=== PATIENT | male | born 1945 | race Caucasian/White ===

== ENCOUNTER 2016-10-07 18:14 | Inpatient (IN) | payer OTHER ==
[~2016-10-07] VITALS: Ht 175.3 cm; Wt 61.9 kg
[~2016-10-07 18:14] MED LIST: AMLODIPINE BESY10 MG PO; ASPIRIN EC325 MG PO; ATORVASTATIN CA80 MG PO; BACTRIM,SEPT1 TABLET PO; CATAPRES0.3 MG PO; EFFIENT10 MG PO; FLAGYL500 MG PO; FUROSEMIDE20 MG PO; LOPRESSOR100 M1 PO; NICOTINE PATCH1 EAC2 TD; SIMVASTATIN10 MG PO; ULTRAM50 MG PO; ZESTRIL40 MG PO; ZYLOPRIM100 MG PO
[2016-10-07 19:22] LABS: HEMATOCRIT 25.8 % (38.0-50.0); MCH 31.6 PG (29.0-34.0); PLATELET COUNT 429 K/uL (156-360); RBC DIS.WIDTH-CV 16.8 % (11.8-14.6); RBC DIS.WIDTH-SD 60.4 % (39-53); RED BLOOD COUNT 2.53 M/uL (4.00-5.50); WHITE BLOOD COUNT 8.4 K/uL (4.1-10.2)
[2016-10-07 19:31] LABS: CHLORIDE 101 mEq/L (99-109); POTASSIUM 4.5 mEq/L (3.7-5.4); SODIUM 131 mEq/L (136-147)
[2016-10-07 19:33] LABS: GLUCOSE 97 mg/dL (70-99)
[2016-10-07 19:34] LABS: ANION GAP 9 MEQ/L (2-14)
[2016-10-07 19:37] LABS: GFR ESTIMATE (CALCULATED) 58 mL/min/; UREA NITROGEN (BUN) 16 mg/dL (9-23)
[2016-10-07 20:28] LABS: ADD MIUA? NO; BILIRUBIN NEGATIVE; BLOOD NEGATIVE; COLOR YELLOW ((YELLOW)); GLUCOSE (STRIP) NEGATIVE; KETONES NEGATIVE; LEUKOCYTES NEGATIVE; NITRITE NEGATIVE; PROTEIN (STRIP) NEGATIVE; SPECIFIC GRAVITY 1.016 (1.000-1.030); UCUL ADDED? NO; UROBILINOGEN 0.2 MG/DL (0.2-1.0)
[2016-10-07 21:25] LABS: INTER. NORMALIZED RATIO 1.1; PROTHROMBIN TIME 10.7 (9.2-11.2); PTT 33.1 (25-32)
[2016-10-08 00:03] VITALS: BP 147/67
[2016-10-08 07:40] VITALS: BP 160/70
[2016-10-08 11:02] LABS: HEMATOCRIT 24.8 % (38.0-50.0); MCH 31.9 PG (29.0-34.0); MCHC 30.6 G/DL (30.0-36.0); MCV 104.2 FL (86-99); MEAN PLAT.VOLUME 10.3 uM^3 (9.0-12.4); PLATELET COUNT 409 K/uL (156-360); RBC DIS.WIDTH-CV 16.5 % (11.8-14.6); RBC DIS.WIDTH-SD 60.8 % (39-53); RED BLOOD COUNT 2.38 M/uL (4.00-5.50); WHITE BLOOD COUNT 8.2 K/uL (4.1-10.2)
[2016-10-08 11:15] VITALS: BP 140/80
[2016-10-08 11:29] LABS: ALKALINE PHOSPHATASE 180 IU/L (3-129); ANION GAP 8 MEQ/L (2-14); CHLORIDE 103 MEQ/L (99-109); GFR ESTIMATE (CALCULATED) > 59 mL/min/; GLUCOSE 101 mg/dL (70-99); MAGNESIUM 1.5 mg/dl (1.3-2.7); SAMPLE HEMOLYSIS CHECK 0; SAMPLE ICTERIC CHECK 0; SAMPLE LIPEMIA CHECK 0; SODIUM 132 MEQ/L (136-147); TOTAL BILIRUBIN 0.5 MG/DL (0.0-1.0); UREA NITROGEN (BUN) 13 mg/dL (9-23)
[2016-10-08 15:23] VITALS: BP 130/80
[2016-10-08 19:18] VITALS: BP 108/74
[2016-10-08 22:47] LABS: POINT-OF-CARE METER ID UU14188625
[2016-10-08 23:52] VITALS: BP 154/76
[2016-10-09 01:22] LABS: HEMATOCRIT 22.6 % (38.0-50.0); MCHC 31.4 G/DL (30.0-36.0); MCV 101.8 FL (86-99); MEAN PLAT.VOLUME 10.1 uM^3 (9.0-12.4); PLATELET COUNT 371 K/uL (156-360); RBC DIS.WIDTH-CV 16.2 % (11.8-14.6); RBC DIS.WIDTH-SD 59.5 % (39-53); RED BLOOD COUNT 2.22 M/uL (4.00-5.50)
[2016-10-09 04:10] VITALS: BP 133/71
[2016-10-09 07:58] VITALS: BP 150/71
[2016-10-09 11:39] LABS: IRON 27 MCG/DL (35-150)
[2016-10-09 11:46] LABS: FERRITIN 685 NG/ML (22-322)
[2016-10-09 15:59] VITALS: BP 154/69
[2016-10-09 20:00] VITALS: BP 163/60
[2016-10-09 23:22] VITALS: BP 160/76
[2016-10-10 03:28] VITALS: BP 152/78
[2016-10-10 07:26] VITALS: BP 158/72
[2016-10-10 08:00] LABS: EOSINOPHIL (%) 1.7 % (0-5); EOSINOPHIL COUNT 0.1 K/uL (0-0.3); HEMATOCRIT 27.6 % (38.0-50.0); IMMATURE GRANULOCYTE (%) 0.6 % (0.0-0.7); IMMATURE GRANULOCYTE COUNT 0.1 K/uL; LYMPHOCYTE COUNT 0.9 K/uL (1.0-2.8); MCH 32.7 PG (29.0-34.0); MCHC 31.9 G/DL (30.0-36.0); MCV 102.6 FL (86-99); MEAN PLAT.VOLUME 10.3 uM^3 (9.0-12.4); MONOCYTE (%) 8.4 % (3-12); MONOCYTE COUNT 0.7 K/uL (0-0.8); NEUTROPHIL (%) 76.8 % (45-76); PLATELET COUNT 410 K/uL (156-360); RBC DIS.WIDTH-CV 16.5 % (11.8-14.6); RBC DIS.WIDTH-SD 61.1 % (39-53); WHITE BLOOD COUNT 7.8 K/uL (4.1-10.2)
[2016-10-10 08:01] LABS: RED BLOOD COUNT 2.69 M/uL (4.00-5.50)
[2016-10-10] MEDS ORDERED: ALLOPURINOL100 MG PO (11:10)
[2016-10-10] MEDS ORDERED: ATORVASTATIN CA80 MG PO (11:11)
[2016-10-10] MEDS ORDERED: PLAVIX75 MG PO (11:11)
[2016-10-10] MEDS ORDERED: LISINOPRIL40 MG PO (11:13)
[2016-10-10] MEDS ORDERED: CLONIDINE HCL0.1 MG PO (11:13)
[2016-10-10] MEDS ORDERED: LOPRESSOR100 M1 PO (11:13)
[2016-10-10 11:20] VITALS: BP 158/72
[2016-10-10] MEDS ORDERED: CYANOCOBALAM1000 MCG PO (11:56)
[2016-10-10] MEDS ORDERED: IRON160 M1 PO (11:57)
[2016-10-10] MEDS ORDERED: FOLIC ACID1 MG PO (11:57)
[2016-10-10 15:58] VITALS: BP 148/66
[2016-10-10 20:00] VITALS: BP 144/71
[2016-10-10 21:46] LABS: QGTB-NIL 0.05 IU/mL (()); TB AG-NIL 0.03 IU/mL (())
[2016-10-10 23:55] VITALS: BP 151/73
[2016-10-11 03:55] VITALS: BP 150/70
[2016-10-11 07:23] VITALS: BP 148/66
[2016-10-11 12:24] VITALS: BP 146/62
[2016-10-11 16:35] VITALS: BP 142/64
[2016-10-11 20:01] VITALS: BP 137/74
[2016-10-11 23:56] VITALS: BP 133/71
[2016-10-12 04:28] VITALS: BP 146/74
[2016-10-12 07:58] VITALS: BP 106/70
[2016-10-12 10:26] VITALS: BP 104/68
[2016-10-12 16:08] VITALS: BP 141/69
[2016-10-12 19:43] VITALS: BP 140/67
[2016-10-12 23:50] VITALS: BP 133/71
[2016-10-13 03:22] VITALS: BP 139/73
[2016-10-13 05:51] LABS: POINT-OF-CARE METER ID UU13113717
[2016-10-13 08:48] VITALS: BP 149/71
[2016-10-13 10:54] VITALS: BP 148/82
[2016-10-13 15:53] VITALS: BP 132/88
[2016-10-13 20:10] VITALS: BP 145/66
[2016-10-14 00:10] VITALS: BP 137/72
[2016-10-14 03:45] VITALS: BP 133/75
[2016-10-14 05:52] LABS: POINT-OF-CARE METER ID UU13113717
[2016-10-14 06:40] LABS: ANION GAP 11 MEQ/L (2-14); CHLORIDE 105 MEQ/L (99-109); GFR ESTIMATE (CALCULATED) > 59 mL/min/; GLUCOSE 103 mg/dL (70-99); MAGNESIUM 1.6 mg/dl (1.3-2.7); SAMPLE HEMOLYSIS CHECK 0; SAMPLE ICTERIC CHECK 0; SAMPLE LIPEMIA CHECK 0; SODIUM 138 MEQ/L (136-147); UREA NITROGEN (BUN) 7 mg/dL (9-23)
[2016-10-14 06:44] LABS: HEMATOCRIT 26.6 % (38.0-50.0); MCH 32.3 PG (29.0-34.0); MCHC 30.1 G/DL (30.0-36.0); MEAN PLAT.VOLUME 10.2 uM^3 (9.0-12.4); PLATELET COUNT 423 K/uL (156-360); RBC DIS.WIDTH-CV 16.2 % (11.8-14.6); RBC DIS.WIDTH-SD 62.9 % (39-53); RED BLOOD COUNT 2.48 M/uL (4.00-5.50); WHITE BLOOD COUNT 11.7 K/uL (4.1-10.2)
[2016-10-14 06:49] LABS: MCV 107.3 FL (86-99)
[2016-10-14 08:01] VITALS: BP 136/82
[2016-10-14 11:29] VITALS: BP 139/90
[2016-10-14 11:35] LABS: POINT-OF-CARE METER ID UU14174225
[2016-10-14] MEDS ORDERED: MORPHINE CON20 MG/M1 PO (11:58)
[2016-10-14] MEDS ORDERED: ATIVAN INTE2 MG/1 ML PO (11:58)
[2016-10-14] MEDS ORDERED: HYOSCYAMINE0.125 M1 SL (11:58)
[2016-10-14 15:05] VITALS: BP 132/78
== END 2016-10-14 16:18 | disposition hospice, home (50) | DRG 82 ==
LOC: EME 18:14 → 5SOUTH 21:07 → EDOF 21:07 → 5SOUTH 23:24
PROVIDERS: Emergency Medicine; Hospitalist; Internal Medicine; Physician Assistant Medical
DX: S06.6X9A Traumatic subarachnoid hemorrhage with loss of consciousness of unspecified duration, initial encounter (principal); J69.0 Pneumonitis due to inhalation of food and vomit; S06.5X9A Traumatic subdural hemorrhage with loss of consciousness of unspecified duration, initial encounter; J44.0 Chronic obstructive pulmonary disease with (acute) lower respiratory infection; R91.1 Solitary pulmonary nodule; F10.20 Alcohol dependence, uncomplicated; F17.210 Nicotine dependence, cigarettes, uncomplicated; I25.10 Atherosclerotic heart disease of native coronary artery without angina pectoris; E87.1 Hypo-osmolality and hyponatremia; R56.9 Unspecified convulsions; R47.01 Aphasia; M10.9 Gout, unspecified; I12.9 Hypertensive chronic kidney disease with stage 1 through stage 4 chronic kidney disease, or unspecified chronic kidney disease; N18.3 Chronic kidney disease, stage 3 (moderate); E78.5 Hyperlipidemia, unspecified; W19.XXXA Unspecified fall, initial encounter; Y92.009 Unspecified place in unspecified non-institutional (private) residence as the place of occurrence of the external cause; D53.9 Nutritional anemia, unspecified; D50.9 Iron deficiency anemia, unspecified; R29.6 Repeated falls; Z86.73 Personal history of transient ischemic attack (TIA), and cerebral infarction without residual deficits; I25.2 Old myocardial infarction; Z95.5 Presence of coronary angioplasty implant and graft; Z78.9 Other specified health status; Z51.5 Encounter for palliative care; Z81.1 Family history of alcohol abuse and dependence
CPT/HCPCS: 31720; 70450; 71010; 71020; 71260; 80048; 80053; 81003; 82272; 82607; 82728; 82948; 83540; 83735; 84466; 85025; 85027; 85610; 85730; 86480 90; 86860; 86870; 86880; 86900; 86901; 87070; 87116; 87205; 87206; 92610 GN; 93005; 93306; 94799; 95819; 97530 GP; 99202; 99281; 99285; J1200; J1953; J2060; J2543; J3370; J3411; J7030; J7050; Q0138; S0028